=== PATIENT | female | born 1995 | race Caucasian/White ===

== ENCOUNTER 2018-05-14 13:21 | Emergency (ER) | payer SELFPAY | END 2018-05-14 14:56 | disposition home or self-care (01) | LOC: ERS 13:21 | DX: L03.316 Cellulitis of umbilicus (principal) | CPT/HCPCS: 99283 ==

== ENCOUNTER 2018-05-20 16:47 | Emergency (ER) | payer SELFPAY ==
--- NOTE | 2018-05-20 19:51 | ULT ---
ANTERIOR ABDOMINAL WALL SOFT TISSUE ULTRASOUND: 05/20/18 HISTORY: Patient presented approximately one week ago with pus oozing from the umbilicus and a lump below the umbilicus. Apparently this has decreased in intensity and the mass has nearly gone away. Ultrasound e xamination of the region of the umbilicus and around the umbilicus demonstrates no evidence for an ab scess or abnormal fluid collection. If the patient has any followup draining from the umbilicus, diagnostic workup for the possibility of associated urachal cyst or urachal abnormality might be considered as an outpatient nonemergent stud y. IMPRESSION: No evidence of abscess or mass in or around the region of the umbilicus. Findings were discussed with Dr. Burns by phone at 6:30 p.m. Code NELSON POS: AUBREY
== END 2018-05-20 18:49 | disposition home or self-care (01) ==
LOC: SCSER 16:47
DX: R10.33 Periumbilical pain (principal); J45.909 Unspecified asthma, uncomplicated
CPT/HCPCS: 76705

== ENCOUNTER 2018-09-05 09:39 | Emergency (ER) | payer SELFPAY ==
--- NOTE | 2018-09-05 10:36 | CT ---
EXAM: Brain CTWithout contrast: HISTORY: Injury from trauma with headache COMPARISON: None FINDINGS: No focal mass or midline shift. No intra or extra-axial hemorrhage. Sinuses and mastoids are clear of acute process. IMPRESSION: No mass or bleed or other significant acute intracranial process.
== END 2018-09-05 11:16 | disposition home or self-care (01) ==
LOC: ERS 09:39
DX: S09.90XA Unspecified injury of head, initial encounter (principal); F07.81 Postconcussional syndrome; J45.909 Unspecified asthma, uncomplicated; W22.8XXA Striking against or struck by other objects, initial encounter
CPT/HCPCS: 70450

== ENCOUNTER 2018-12-13 14:22 | Emergency (ER) | payer SELFPAY ==
--- NOTE | 2018-12-13 15:45 | RAD ---
XR Knee Rt 4 View STANDARD HISTORY: Injury, right knee pain FINDINGS: No fracture or dislocation is identified.
== END 2018-12-13 15:55 | disposition home or self-care (01) ==
LOC: ERS 14:22
DX: S80.01XA Contusion of right knee, initial encounter (principal); J45.909 Unspecified asthma, uncomplicated; Z79.899 Other long term (current) drug therapy; W55.12XA Struck by horse, initial encounter

== ENCOUNTER 2020-02-14 11:26 | Emergency (ER) | payer OTHER ==
[2020-02-14 13:53] LABS: #Eosinphils 0.5 thou/uL (0.0-0.7); #Monocytes 0.7 thou/uL (0.11-0.59); #Neutrophils 7.2 thou/uL (1.40-6.50); %Basophils 0.4 % (0.0-1.0); %Eosinophils 5.2 % (0.0-10.0); %Lymphocytes 19.4 % (21.0-51.0); %Monocytes 6.4 % (0.0-10.0); %Neutrophils 68.6 % (42.0-75.0); Hemoglobin 13.9 g/dL (12.0-16.0); Mean Corpuscular HGB CONC 32.9 g/dL (32.0-36.0); Mean Corpuscular Hemoglobin 31.1 pg (27.0-31.0); Mean Corpuscular Volume 94.3 fL (78.0-98.0); Platelet Count 249 thou/uL (130-400); Red Blood Cell (RBC) Count 4.46 mill/uL (4.20-5.40); White Blood Cell (WBC) Count 10.5 thou/uL (4.8-10.8)
[2020-02-14 14:14] LABS: ALT (SGPT) 14 U/L (8-55); AST (SGOT) 17 U/L (5-34); Albumin 4.3 g/dL (3.5-5.0); Alkaline Phosphatase 79 U/L (40-110); Anion Gap 14 mmol/L (10-20); BUN (Urea Nitrogen) 7 mg/dL (7.0-18.7); Bilirubin, Total 0.5 mg/dL (0.2-1.2); Calc. Creatinine Clearance 0 mL/min (70-130); Calcium 8.9 mg/dL (7.8-10.44); Carbon Dioxide 25 mmol/L (22-29); Chloride 104 mmol/L (98-107); Estimated GFR-MDRD Greater than 90; Globulin 2.7 g/dL (2.4-3.5); Glucose 73 mg/dL (70-105); Potassium 3.7 mmol/L (3.5-5.1); Sodium 139 mmol/L (136-145)
[2020-02-14 14:59] LABS: BHCG - Serum Negative (NEGATIVE); Pregs Control Background? CLEAR/WHITE (CLR/WHITE); Pregs Control Bar Appear? YES (CONTROL BAR)
[2020-02-14 15:37] LABS: Bilirubin Negative (Negative); Blood, Urine 3+ (Negative); Clarity Clear (Clear); Glucose, Urine (Dipstick) Normal (Negative); Ketone, Urine 40 mg/dL (Negative); Leukocyte Negative Leu/uL (Negative); Mucous/LPF 1+ LPF (<2+); Nitrite Negative (Negative); Protein, Urine (Dipstick) Negative (Neg-Trace); RBC/HPF Greater than 50 HPF (0-3); Specific Gravity, Urine 1.012 (1.002-1.036); Urobilinogen Normal mg/dL (Less than 2); pH, Urine 5.5 (5.0-9.0)
[2020-02-14 15:44] LABS: Bacteria/HPF Rare-Few HPF (None Seen)
[2020-02-14] MEDS ORDERED: Ketorolac Tromethamine 30 MG/ML VIAL ONE (15:49)
[2020-02-14] MEDS ORDERED: Ondansetron PF 4 MG/2 ML Vial ONE (15:49)
[2020-02-14] MEDS ORDERED: Fentanyl 100 MCG/2 ML VIAL ONE (15:49)
--- NOTE | 2020-02-14 15:52 | CT ---
CT Stone Protocol 02/14/2020 3:30 PM HISTORY: History of kidney stones. Worsening flank pain. COMPARISON: 03/07/2016 Technique: Multiple contiguous axial CT images are obtained through the abdomen and pelvis without IV contrast. Coronal reformats are provided. FINDINGS: This examination is limited for the evaluation of solid organs and vascular structures due to the lac k of intravenous contrast. Lower Chest: Lung bases are clear. Liver: Grossly normal non-enhanced CT appearance. Gallbladder: Within normal limits for CT imaging. Pancreas: Grossly normal nonenhanced CT appearance. Spleen: Grossly normal nonenhanced CT appearance. Adrenals: Grossly normal nonenhanced CT appearance. Kidneys and ureters: There are a few scattered 2 mm nonobstructing bilateral renal calculi. No ureter al calculus is seen bilaterally, and there is no hydronephrosis. Urinary bladder: A 4 mm calculus is seen in the left posterolateral aspect of the urinary bladder. Th is calculus is most likely just within the urinary bladder near the left UVJ. Urinary bladder is incompletely distended on this exam. Reproductive Organs: There is a 3.7 cm hypodense cystic structure left adnexa which on this nonenhanc ed CT exam demonstrates an attenuation coefficients suggesting an ovarian cyst. Lymph Nodes: No enlarged lymph nodes. Bowel: Small amount of retained fecal material seen throughout the colon. Loops of small bowel are no rmal in caliber. Oval-shaped circumscribed increased density focus in the proximal transverse colon likely due to ingested material of uncertain etiology. Appendix: Not visualized on this examination related to multiple unopacified structures in the pelvis and the cecal apex. Peritoneum: No free fluid, free air, or fluid collection. Retroperitoneum: within normal limits. Vessels: Abdominal aorta is normal in caliber.. Abdominal Wall: within normal limits. Bones: No lytic or sclerotic osseous lesions. IMPRESSION: 1. Approximately 4 mm calculus which is thought to be just distal to the left UVJ within the urinary bladder. There is no hydronephrosis, and a ureteral calculus is not seen. 2. Tiny approximately 2 mm scattered calculi noted in each kidney without hydronephrosis. 3. Left ovarian hypodense cystic lesion which demonstrates an attenuation coefficient most suggestive of a cyst.
== END 2020-02-14 16:17 | disposition home or self-care (01) ==
LOC: ERS 11:26
DX: N13.2 Hydronephrosis with renal and ureteral calculous obstruction (principal); J45.909 Unspecified asthma, uncomplicated; Z79.51 Long term (current) use of inhaled steroids
CPT/HCPCS: 36415; 74176; 80053; 81003; 81015; 83690; 84703; 85025; 96374; 96375; J1885; J2405; J3010

== ENCOUNTER 2022-01-29 12:19 | Outpatient (CLI) | payer BC, OTHER | END 2022-01-29 12:20 | disposition home or self-care (01) | LOC: SCSRAD 12:19 | PROVIDERS: ATTEND Family Medicine Sports Medicine | DX: R06.02 Shortness of breath (principal) | CPT/HCPCS: 71046 ==

== ENCOUNTER 2022-08-27 12:57 | Outpatient (CLI) | payer BC ==
[2022-08-27 14:43] LABS: Hemoglobin 13.1 g/dL (12.0-15.5)
[2022-08-27 14:59] LABS: BHCG - Serum Negative (NEGATIVE); Pregs Control Background? CLEAR/WHITE (CLR/WHITE); Pregs Control Bar Appear? YES (CONTROL BAR)
== END 2022-08-27 12:58 | disposition home or self-care (01) ==
LOC: LABBT 12:57
PROVIDERS: ATTEND Student in an Organized Health Care Education/Training Program
DX: Z01.812 Encounter for preprocedural laboratory examination (principal)
CPT/HCPCS: 84703; 85014; 85018

== ENCOUNTER 2022-09-01 10:12 | Day surgery (SDC) | payer BC ==
[2022-08-31 12:54] VITALS: BMI 28.3
[2022-09-01] MEDS ORDERED: Oxymetazoline HCl 0.05% (30 ML BOT) ONE ×2 (11:26→13:28)
[2022-09-01] MEDS ORDERED: Midazolam HCl 2 mg/2 ml Vial ONE (13:20)
[2022-09-01] MEDS ORDERED: fentaNYL PF 100 MCG/2 ML SYRINGE ONE (13:21)
[2022-09-01] MEDS ORDERED: HYDROmorphone 0.5 MG/0.5 ML SYRINGE ONE (13:21)
[2022-09-01] MEDS ORDERED: EPINEPHrine 1 MG/ML AMP ONE (13:28)
[2022-09-01] MEDS ORDERED: Lidocaine 1% (PF) 30 ML VIAL ONE (13:28)
[2022-09-01] MEDS ORDERED: Bacitracin Zinc Ointment 30 gm TUBE ONE (13:28)
[2022-09-01] MEDS ORDERED: Clindamycin/D5W 600 mg/50 ml Premix Bag ONE (13:34)
[2022-09-01] MEDS ORDERED: Ondansetron PF 4 MG/2 ML Vial ONE ×2 (13:40→17:13)
[2022-09-01] MEDS ORDERED: Lidocaine 1% PF 5 ML VIAL ONE (13:40)
[2022-09-01] MEDS ORDERED: PROPOFOL 200 MG/20 ML VIAL ONE (13:40)
[2022-09-01] MEDS ORDERED: Dexamethasone 20 MG/5 ML VIAL ONE (13:40)
[2022-09-01] MEDS ORDERED: Triamcinolone 40 MG/ML VIAL ONE (15:44)
[2022-09-01] MEDS ORDERED: fentaNYL 50 mcg/mL 1 mL Vial ONE ×2 (16:36→16:50)
== END 2022-09-01 17:35 | disposition home or self-care (01) ==
LOC: SDC 10:12
PROVIDERS: ATTEND Student in an Organized Health Care Education/Training Program
PROC: 09BX8ZZ Excision of Left Sphenoid Sinus, Via Natural or Artificial Opening Endoscopic (ICD-10-PCS; principal; 2022-09-01)
PROC: 09BR8ZZ Excision of Left Maxillary Sinus, Via Natural or Artificial Opening Endoscopic (ICD-10-PCS; principal; 2022-09-01)
PROC: 09BT8ZZ Excision of Left Frontal Sinus, Via Natural or Artificial Opening Endoscopic (ICD-10-PCS; principal; 2022-09-01)
PROC: 09BS8ZZ Excision of Right Frontal Sinus, Via Natural or Artificial Opening Endoscopic (ICD-10-PCS; principal; 2022-09-01)
PROC: 09BW8ZZ Excision of Right Sphenoid Sinus, Via Natural or Artificial Opening Endoscopic (ICD-10-PCS; principal; 2022-09-01)
PROC: 09BQ8ZZ Excision of Right Maxillary Sinus, Via Natural or Artificial Opening Endoscopic (ICD-10-PCS; principal; 2022-09-01)
PROC: 8E09XBZ Computer Assisted Procedure of Head and Neck Region (ICD-10-PCS; principal; 2022-09-01)
PROC: 09BV8ZZ Excision of Left Ethmoid Sinus, Via Natural or Artificial Opening Endoscopic (ICD-10-PCS; principal; 2022-09-01)
PROC: 09BU8ZZ Excision of Right Ethmoid Sinus, Via Natural or Artificial Opening Endoscopic (ICD-10-PCS; principal; 2022-09-01)
DX: J32.8 Other chronic sinusitis (principal); J33.8 Other polyp of sinus; J34.2 Deviated nasal septum; J34.3 Hypertrophy of nasal turbinates; J34.89 Other specified disorders of nose and nasal sinuses; J31.2 Chronic pharyngitis; J45.909 Unspecified asthma, uncomplicated; Z87.891 Personal history of nicotine dependence; Z79.899 Other long term (current) drug therapy; Z88.0 Allergy status to penicillin
CPT/HCPCS: J0171; J1100; J1170; J2001; J2250; J2405; J2704; J3010; J3301; J3490